=== PATIENT | male | born 1980 | race African-American/Black ===

== ENCOUNTER 2018-04-21 22:31 | Emergency (ER) | payer BC, OTHER ==
[~2018-04-21] VITALS: Ht 177.8 cm; Wt 72.6 kg
--- NOTE | 2018-04-21 22:45 | NUR ---
PT BIB [facility]. COMP OF " L SIDED CP, WORSE WITH INSPIRATION, NONRADIATING NONPROVOKED". NO SOB NOTED. NO ACUTE DISTRESS AT THIS TIME. PT AOX4. AMBULATORY W,STEADY GAIT. NO DIZZINESS. -N/V NOTED. AWAITING MD LUNDBERG.
[2018-04-21 22:55] VITALS: BP 158/102
--- NOTE | 2018-04-21 23:21 | NUR ---
Patient eloped from facility. ER MD notified.
== END 2018-04-21 23:22 | disposition left against medical advice (07) ==
LOC: ER 22:40
DX: Z53.21 Procedure and treatment not carried out due to patient leaving prior to being seen by health care provider (principal); R07.9 Chest pain, unspecified